=== PATIENT | female | born 1990 | race Caucasian/White ===

== ENCOUNTER 2021-02-14 02:27 | Emergency (ER) | payer SELFPAY ==
[2021-02-14 02:57] LABS: #Basophils 0.1 thou/uL (0.0-0.2); #Eosinphils 0.2 thou/uL (0.0-0.7); #Lymphocytes 3.4 thou/uL (1.20-3.40); #Monocytes 0.8 thou/uL (0.11-0.59); #Neutrophils 4.6 thou/uL (1.40-6.50); %Basophils 1.3 % (0.0-1.0); %Eosinophils 1.7 % (0.0-10.0); %Lymphocytes 37.8 % (21.0-51.0); %Monocytes 8.4 % (0.0-10.0); %Neutrophils 50.8 % (42.0-75.0); Hemoglobin 12.2 g/dL (12.0-16.0); Mean Corpuscular HGB CONC 31.4 g/dL (32.0-36.0); Mean Corpuscular Hemoglobin 25.6 pg (27.0-31.0); Mean Corpuscular Volume 81.4 fL (78.0-98.0); Mean Platelet Volume 8.2 fL (7.4-10.4); Platelet Count 328 thou/uL (130-400); RBC Distribution Width 14.7 % (11.5-14.5); Red Blood Cell (RBC) Count 4.76 mill/uL (4.20-5.40)
[2021-02-14] MEDS ORDERED: Lorazepam 2 MG/ML VIAL ONE (03:01)
[2021-02-14] MEDS ORDERED: Sodium Chloride 0.9% 1,000 ML ONE (03:01)
[2021-02-14 03:12] LABS: Bilirubin Negative (Negative); Blood, Urine Negative (Negative); Clarity Clear (Clear); Glucose, Urine (Dipstick) Negative (Negative); Ketone, Urine Negative (Negative); Leukocyte Small (Negative); Nitrite Negative (Negative); Protein, Urine (Dipstick) Negative (Neg-Trace); Specific Gravity, Urine 1.025 (1.005-1.030); Urobilinogen 0.2 mg/dL (Less than 2); pH, Urine 5.5 (5.0-9.0)
[2021-02-14 03:15] LABS: Anion Gap 16 mmol/L (10-20); BUN (Urea Nitrogen) 13 mg/dL (7.0-18.7); Calc. Creatinine Clearance 0 mL/min (70-130); Calcium 9.7 mg/dL (7.8-10.44); Carbon Dioxide 22 mmol/L (22-29); Chloride 104 mmol/L (98-107); Glucose 138 mg/dL (70-105); Sodium 139 mmol/L (136-145)
[2021-02-14 03:16] LABS: Acetaminophen Less than 6.0 mcg/mL (10.0-30.0); Alcohol 35 mg/dL (Less than 10); Salicylate Less than 8.0 mg/dL (15.0-30.0)
[2021-02-14 03:17] LABS: Pregnancy Test - Urine (BHCG) Negative (Negative); Pregu Control Background? CLEAR/WHITE (CLR/WHITE); Pregu Control Bar Appear? YES (CONTROL BAR); Specific Gravity 1.025 (1.002-1.036)
[2021-02-14 03:19] LABS: Mucous/LPF 1+ LPF (<2+); RBC/HPF None Seen HPF (0-3)
[2021-02-14 03:21] LABS: Potassium 2.9 mmol/L (3.5-5.1)
[2021-02-14 03:22] LABS: Amphetamine Not Detected (NotDetected); Barbiturates Screen Not Detected (NotDetected); Benzodiazepine Screen Not Detected (NotDetected); Cocaine Metabolite Screen Not Detected (NotDetected); Medtox Control Line Valid? VALID (VALID); Methadone Not Detected (NotDetected); Methamphetamine Not Detected (NotDetected); Opiate Screen Not Detected (NotDetected); Oxycodone Screen Not Detected (NotDetected); Phencyclidine (PCP) Not Detected (NotDetected); THC/Cannabinoid Screen Detected (NotDetected); Tricyclic Screen Not Detected (NotDetected)
[2021-02-14 03:50] LABS: Magnesium 1.9 mg/dL (1.6-2.6); Potassium 3.4 mmol/L (3.5-5.1)
[2021-02-14] MEDS ORDERED: Potassium Chloride 20 MEQ TAB ONE (03:58)
== END 2021-02-14 04:12 | disposition home or self-care (01) ==
LOC: MADERS 02:27
DX: F12.10 Cannabis abuse, uncomplicated (principal); E87.6 Hypokalemia; F10.129 Alcohol abuse with intoxication, unspecified; E03.9 Hypothyroidism, unspecified
CPT/HCPCS: 80048; 80306; 80307; 81003; 81015; 81025; 83735; 84443; 85025; 96374; J2060; J7050

== ENCOUNTER 2021-05-06 15:51 | Emergency (ER) | payer SELFPAY ==
[2021-05-06 16:32] LABS: Bilirubin Negative (Negative); Blood, Urine Negative (Negative); Clarity Clear (Clear); Glucose, Urine (Dipstick) Negative (Negative); Ketone, Urine Negative (Negative); Leukocyte Negative (Negative); Nitrite Negative (Negative); Protein, Urine (Dipstick) Negative (Neg-Trace); Urobilinogen 0.2 mg/dL (Less than 2)
[2021-05-06 16:33] LABS: #Basophils 0.1 thou/uL (0.0-0.2); #Eosinphils 0.1 thou/uL (0.0-0.7); #Lymphocytes 1.5 thou/uL (1.20-3.40); #Monocytes 0.6 thou/uL (0.11-0.59); #Neutrophils 4.8 thou/uL (1.40-6.50); %Basophils 1.2 % (0.0-1.0); %Eosinophils 0.9 % (0.0-10.0); %Lymphocytes 21.3 % (21.0-51.0); %Monocytes 8.7 % (0.0-10.0); %Neutrophils 67.9 % (42.0-75.0); Hemoglobin 11.8 g/dL (12.0-16.0); Mean Corpuscular HGB CONC 31.6 g/dL (32.0-36.0); Mean Corpuscular Hemoglobin 25.9 pg (27.0-31.0); Mean Corpuscular Volume 82.1 fL (78.0-98.0); Mean Platelet Volume 7.4 fL (7.4-10.4); Platelet Count 324 thou/uL (130-400); RBC Distribution Width 14.1 % (11.5-14.5); Red Blood Cell (RBC) Count 4.56 mill/uL (4.20-5.40)
[2021-05-06 16:39] LABS: BHCG - Serum POSITIVE (NEGATIVE); Pregs Control Background? CLEAR/WHITE (CLR/WHITE); Pregs Control Bar Appear? YES (CONTROL BAR)
[2021-05-06 16:40] LABS: Amphetamine Not Detected (NotDetected); Barbiturates Screen Not Detected (NotDetected); Benzodiazepine Screen Not Detected (NotDetected); Cocaine Metabolite Screen Not Detected (NotDetected); Medtox Control Line Valid? VALID (VALID); Methadone Not Detected (NotDetected); Methamphetamine Not Detected (NotDetected); Opiate Screen Not Detected (NotDetected); Oxycodone Screen Not Detected (NotDetected); Phencyclidine (PCP) Not Detected (NotDetected); THC/Cannabinoid Screen Not Detected (NotDetected); Tricyclic Screen Not Detected (NotDetected)
[2021-05-06 16:50] LABS: ALT (SGPT) 14 U/L (8-55); AST (SGOT) 16 U/L (5-34); Albumin 4.5 g/dL (3.5-5.0); Alkaline Phosphatase 52 U/L (40-110); Anion Gap 12 mmol/L (10-20); BUN (Urea Nitrogen) 12 mg/dL (7.0-18.7); Bilirubin, Total 0.3 mg/dL (0.2-1.2); CK (CPK) 97 U/L (29-168); CRP (Inflammatory) Less than 0.50 mg/dL (= or < 0.5); Calc. Creatinine Clearance 0 mL/min (70-130); Calcium 9.9 mg/dL (7.8-10.44); Carbon Dioxide 24 mmol/L (22-29); Chloride 107 mmol/L (98-107); Globulin 3.3 g/dL (2.4-3.5); Glucose 88 mg/dL (70-105); Potassium 3.8 mmol/L (3.5-5.1); Protein, Total 7.8 g/dL (6.0-8.3); Sodium 139 mmol/L (136-145)
== END 2021-05-06 17:15 | disposition home or self-care (01) ==
LOC: MADERS 15:51
DX: O99.891 Other specified diseases and conditions complicating pregnancy (principal); R10.9 Unspecified abdominal pain; R11.0 Nausea; O99.281 Endocrine, nutritional and metabolic diseases complicating pregnancy, first trimester; E03.9 Hypothyroidism, unspecified; Z3A.01 Less than 8 weeks gestation of pregnancy
CPT/HCPCS: 36415; 80053; 80306; 81003; 82550; 84702; 84703; 85025; 86140; 99284

== ENCOUNTER 2022-04-16 17:55 | Emergency (ER) | payer OTHER ==
[2022-04-16 19:55] LABS: Bilirubin Negative (Negative); Blood, Urine Trace (Negative); Clarity Clear (Clear); Glucose, Urine (Dipstick) Negative (Negative); Ketone, Urine Negative (Negative); Leukocyte Negative (Negative); Nitrite Negative (Negative); Protein, Urine (Dipstick) Negative (Neg-Trace); Urobilinogen 0.2 mg/dL (Less than 2)
[2022-04-16 19:59] LABS: Pregnancy Test - Urine (BHCG) Negative (Negative); Pregu Control Background? CLEAR/WHITE (CLR/WHITE); Pregu Control Bar Appear? YES (CONTROL BAR); Specific Gravity 1.016 (1.002-1.036)
[2022-04-16 20:04] LABS: Bacteria/HPF None Seen HPF (None Seen); RBC/HPF 0-3 HPF (0-3); Squamous Epithelial 0-3 HPF (0-3); WBC/HPF 0-3 HPF (0-3)
[2022-04-16 20:05] LABS: Prothrombin Time 12.9 sec (12.0-14.7)
[2022-04-16 20:07] LABS: #Basophils 0.1 thou/uL (0.0-0.2); #Eosinphils 0.2 thou/uL (0.0-0.7); #Lymphocytes 2.2 thou/uL (1.20-3.40); #Monocytes 0.5 thou/uL (0.11-0.59); #Neutrophils 3.9 thou/uL (1.40-6.50); %Basophils 1.3 % (0.0-1.0); %Eosinophils 3.2 % (0.0-10.0); %Lymphocytes 32.1 % (21.0-51.0); %Monocytes 7.1 % (0.0-10.0); %Neutrophils 56.4 % (42.0-75.0); Hemoglobin 12.1 g/dL (12.0-16.0); Mean Corpuscular HGB CONC 30.7 g/dL (32.0-36.0); Mean Corpuscular Hemoglobin 24.7 pg (27.0-31.0); Mean Corpuscular Volume 80.6 fL (78.0-98.0); Platelet Count 323 thou/uL (130-400); RBC Distribution Width 14.3 % (11.5-14.5); RBC Morphology Normal; Red Blood Cell (RBC) Count 4.88 mill/uL (4.20-5.40); White Blood Cell (WBC) Count 6.8 thou/uL (4.8-10.8)
[2022-04-16 20:11] LABS: ALT (SGPT) 22 U/L (8-55); AST (SGOT) 19 U/L (5-34); Albumin 4.4 g/dL (3.5-5.0); Alkaline Phosphatase 70 U/L (40-110); Anion Gap 13 mmol/L (10-20); BUN (Urea Nitrogen) 13 mg/dL (7.0-18.7); Bilirubin, Total 0.2 mg/dL (0.2-1.2); Calc. Creatinine Clearance 0 mL/min (70-130); Calcium 9.8 mg/dL (7.8-10.44); Carbon Dioxide 25 mmol/L (22-29); Chloride 107 mmol/L (98-107); Estimated GFR 117; Globulin 2.9 g/dL (2.4-3.5); Glucose 92 mg/dL (70-105); Potassium 3.9 mmol/L (3.5-5.1); Protein, Total 7.3 g/dL (6.0-8.3); Sodium 141 mmol/L (136-145)
== END 2022-04-16 21:04 | disposition home or self-care (01) ==
LOC: MADERS 17:55
DX: N92.1 Excessive and frequent menstruation with irregular cycle (principal)
CPT/HCPCS: 80053; 81003; 81015; 81025; 85025; 85610; 99284

== ENCOUNTER 2022-12-23 19:21 | Emergency (ER) | payer OTHER | END 2022-12-23 21:00 | disposition home or self-care (01) | LOC: MADERS 19:21 | DX: J02.9 Acute pharyngitis, unspecified (principal); Z20.822 Contact with and (suspected) exposure to COVID-19 | CPT/HCPCS: 87081; 87430; 87635; 87804; 99283 ==

== ENCOUNTER 2023-03-08 21:03 | Emergency (ER) | payer OTHER ==
[2023-03-08 21:35] LABS: Bilirubin Negative (Negative); Blood, Urine Negative (Negative); Clarity Clear (Clear); Glucose, Urine (Dipstick) Negative (Negative); Ketone, Urine Negative (Negative); Leukocyte Negative (Negative); Nitrite Negative (Negative); Protein, Urine (Dipstick) Negative (Neg-Trace); Urobilinogen 0.2 mg/dL (Less than 2); pH, Urine 5.5 (5.0-9.0)
[2023-03-08 21:37] LABS: CAUTI Indications for Culture Urological Procedure; RBC/HPF None Seen HPF (0-3); WBC/HPF None Seen HPF (0-3)
[2023-03-08 21:38] LABS: Squamous Epithelial 0-3 HPF (0-3)
[2023-03-08 21:39] LABS: Urine Culture Reflex Yes Yes
== END 2023-03-08 22:59 | disposition home or self-care (01) ==
LOC: MADERS 21:03
DX: O98.811 Other maternal infectious and parasitic diseases complicating pregnancy, first trimester (principal); B37.31 Acute candidiasis of vulva and vagina; Z3A.10 10 weeks gestation of pregnancy
CPT/HCPCS: 81001; 87086; 87480; 87510; 87660; 99283

== ENCOUNTER 2023-12-11 13:01 | Outpatient (CLI) | payer OTHER | END 2023-12-11 13:02 | disposition home or self-care (01) | LOC: MADLAB 13:01 | PROVIDERS: ATTEND Physician Assistant | DX: K59.00 Constipation, unspecified (principal) | CPT/HCPCS: 74018 ==

== ENCOUNTER 2023-12-19 20:50 | Emergency (ER) | payer OTHER ==
[2023-12-19] MEDS ORDERED: Ondansetron ODT 4 MG TAB ONE (21:02)
[2023-12-19 21:06] LABS: Bilirubin Negative (Negative); Blood, Urine Negative (Negative); CAUTI Indications for Culture Dysuria,urgency,freq; Clarity Clear (Clear); Glucose, Urine (Dipstick) Negative (Negative); Ketone, Urine Negative (Negative); Leukocyte Negative (Negative); Nitrite Negative (Negative); Pregnancy Test - Urine (BHCG) Negative (Negative); Pregu Control Background? CLEAR/WHITE (CLR/WHITE); Pregu Control Bar Appear? YES (CONTROL BAR); Protein, Urine (Dipstick) Negative (Neg-Trace); RBC/HPF None Seen HPF (0-3); Specific Gravity 1.015 (1.002-1.036); Specific Gravity, Urine 1.015 (1.005-1.030); Squamous Epithelial 0-3 HPF (0-3); Urobilinogen 0.2 mg/dL (Less than 2); WBC/HPF None Seen HPF (0-3)
[2023-12-19 21:07] LABS: Urine Culture Reflex No No
== END 2023-12-19 21:15 | disposition home or self-care (01) ==
LOC: MADERS 20:50
DX: E86.0 Dehydration (principal); Z32.02 Encounter for pregnancy test, result negative
CPT/HCPCS: 81001; 81025; 99284; Q0162

== ENCOUNTER 2024-02-10 06:30 | Emergency (ER) | payer OTHER ==
[2024-02-10] MEDS ORDERED: Sodium Chloride 0.9% 1,000 ML ONE (07:09)
[2024-02-10] MEDS ORDERED: Sodium Chloride 0.9% 50 ML ONE (07:09)
[2024-02-10] MEDS ORDERED: Acetaminophen 500 MG TAB ONE (07:09)
[2024-02-10] MEDS ORDERED: Metoclopramide HCl 10 MG (2 mL) VIAL ONE (07:09)
[2024-02-10 07:36] LABS: #Basophils 0.1 thou/uL (0.0-0.2); #Eosinphils 0.1 thou/uL (0.0-0.7); #Lymphocytes 1.4 thou/uL (1.20-3.40); #Monocytes 0.4 thou/uL (0.11-0.59); %Basophils 1.1 % (0.0-1.0); %Eosinophils 1.3 % (0.0-10.0); %Lymphocytes 15.7 % (21.0-51.0); %Monocytes 4.6 % (0.0-10.0); %Neutrophils 77.4 % (42.0-75.0); Hematocrit 39.2 % (36.0-47.0); Hemoglobin 11.9 g/dL (12.0-16.0); Mean Corpuscular HGB CONC 30.4 g/dL (32.0-36.0); Mean Corpuscular Hemoglobin 24.5 pg (27.0-31.0); Mean Corpuscular Volume 80.5 fl (78.0-98.0); Mean Platelet Volume 8.1 fL (7.4-10.4); Platelet Count 273 10x3/uL (130-400); Red Blood Cell (RBC) Count 4.87 mill/uL (4.20-5.40)
[2024-02-10 07:49] LABS: ALT (SGPT) 9 U/L (8-55); AST (SGOT) 11 U/L (5-34); Albumin 3.9 g/dL (3.5-5.0); Alkaline Phosphatase 70 U/L (40-110); Anion Gap 14 mmol/L (10-20); BUN (Urea Nitrogen) 11 mg/dL (7.0-18.7); Bilirubin, Total Less than 0.2 mg/dL (0.2-1.2); Calc. Creatinine Clearance 0 mL/min (70-130); Calcium 9.9 mg/dL (7.8-10.44); Carbon Dioxide 21 mmol/L (22-29); Chloride 107 mmol/L (98-107); Estimated GFR 113; Globulin 3.9 g/dL (2.4-3.5); Glucose 112 mg/dL (70-105); Potassium 3.9 mmol/L (3.5-5.1); Protein, Total 7.8 g/dL (6.0-8.3); Sodium 138 mmol/L (136-145)
[2024-02-10 08:10] LABS: Anisocytosis SLIGHT = 6-15 cells (100X) (0-5/hpf)
[2024-02-10 08:11] LABS: Platelet Adequacy Comment Appears Adequate
[2024-02-10 08:22] LABS: Bilirubin Negative (Negative); Blood, Urine Negative (Negative); Clarity Clear (Clear); Glucose, Urine (Dipstick) Negative (Negative); Ketone, Urine Trace mg/dL (Negative); Leukocyte Negative (Negative); Nitrite Negative (Negative); Protein, Urine (Dipstick) Negative (Neg-Trace); Urobilinogen 0.2 mg/dL (Less than 2)
[2024-02-10 08:30] LABS: RBC/HPF 0-3 HPF (0-3); Specific Gravity, Urine 1.023 (1.002-1.036)
[2024-02-10 08:31] LABS: Bacteria/HPF Rare-Few HPF (None Seen); CAUTI Indications for Culture Dysuria,urgency,freq; Squamous Epithelial 0-3 HPF (0-3); WBC/HPF 0-3 HPF (0-3)
[2024-02-10 08:33] LABS: Urine Culture Reflex No No
== END 2024-02-10 08:55 | disposition home or self-care (01) ==
LOC: MADERS 06:30
DX: O99.281 Endocrine, nutritional and metabolic diseases complicating pregnancy, first trimester (principal); O24.911 Unspecified diabetes mellitus in pregnancy, first trimester; E86.0 Dehydration; Z3A.13 13 weeks gestation of pregnancy; Z55.6 Problems related to health literacy
CPT/HCPCS: 80053; 81001; 84702; 85025; 86900; 86901; 96374; J2765; J7030